=== PATIENT | female | born 1970 | race Caucasian/White ===

== ENCOUNTER 2021-05-13 14:00 | Outpatient (CLI) | payer OTHER ==
[~2021-05-13 14:00] MED LIST: AMLO-262 PO; DEXA4TAB66 PO; LISI40TA9 PO; PROM25TA10 PO
== END 2021-05-13 23:59 | disposition home or self-care (01) ==
LOC: RAD 14:00
PROVIDERS: ATTEND Nurse Practitioner Family
DX: M25.752 Osteophyte, left hip (principal); M25.751 Osteophyte, right hip; M75.32 Calcific tendinitis of left shoulder; M75.31 Calcific tendinitis of right shoulder; Z00.00 Encounter for general adult medical examination without abnormal findings; M25.811 Other specified joint disorders, right shoulder
CPT/HCPCS: 73523